=== PATIENT | female | born 1975 | race Caucasian/White ===

== ENCOUNTER → 2017-06-26 | Outpatient (CLI) | payer OTHER ==
[~2017-06-26] MED LIST: SULF-154 PO; Z.0.NO CURRENT MEDS; ZOVI200C24 PO
[2017-06-26 13:44] LABS: BACTERIA, URINE RARE /hpf; BILIRUBIN, URINE NEG (NEG); BLOOD, URINE SMALL (NEG); GLUCOSE,URINE NEG (NEG); KETONE, URINE TRACE mg/dL (NEG); NITRITE,URINE NEG (NEG); SQUAMOUS EPITHELIAL CELL URINE 2 /hpf (0-5); URINE COLOR LIGHT-YELLOW (YELLW/STRAW); URINE LEUKOCYTE ESTERASE TRACE (NEG)
[2017-06-26 14:01] LABS: HEMOGLOBIN 11.9 GM/DL (11.6-15.3); MEAN CELL VOLUME 87.9 FL (80.0-100.0); MEAN PLATELET VOLUME 8.5 FL (7.0-11.0); PLATELET COUNT 219 TH/MM3 (150-450); RED CELL DISTRIBUTION WIDTH 14.5 % (11.6-17.2); WHITE BLOOD COUNT 5.6 TH/MM3 (4.0-11.0)
--- NOTE | 2017-06-27 15:43 | EKG ---
Date Performed: 06/26/2017 Time Performed: 13:06:25 PTAGE: 41 years EKG: Sinus rhythm Consider anterior ischemia Consider anteroseptal myocardial infarction - age indeterminate NO PREVIOUS TRACING DOCTOR: Manjinder Alvarez Interpretating Date/Time 06/27/2017 15:42:01
== END ==
LOC: CPRE 12:49
PROVIDERS: ATTEND Obstetrics & Gynecology
DX: Z01.812 Encounter for preprocedural laboratory examination (principal); Z01.810 Encounter for preprocedural cardiovascular examination; N92.0 Excessive and frequent menstruation with regular cycle; N94.6 Dysmenorrhea, unspecified
CPT/HCPCS: 36415; 81001; 84702; 85027; 93005

== ENCOUNTER 2017-06-28 10:35 | Observation (INO) | payer OTHER ==
--- NOTE | 2017-06-27 13:53 | MH ---
cc: Trevor Seymour MD DATE OF ADMISSION: 06/28/2017 ADMITTING DIAGNOSES: Menorrhagia with dysmenorrhea. HISTORY OF PRESENT ILLNESS: The patient is a 41-year-old white female, para 0-1-1-1 with a 2-year history of excessive menstrual flow, menstrual cramps, and both symptoms have gotten worse over the last 6 months. Her laboratory studies were pertinent for anemia with normal thyroid, FSH. Her Pap smear was normal. Her pelvic ultrasound from 05/11/2017, was normal. Endometrial biopsy from 06/02/2017, was benign. After discussion of the relevant and different treatment options, the patient wished to proceed with a hysterectomy, now admitted for same. PAST SURGICAL HISTORY: in 2004. MEDICATIONS: Vitamins. ALLERGIES: NONE. TRANSFUSIONS: None. SOCIAL HISTORY: She works with hearing aids, 17 years. Alcohol: Occasional. Tobacco: None. Drugs: None. FAMILY HISTORY: Noncontributory. PHYSICAL EXAMINATION: GENERAL: She is a well-nourished, well-developed white female. VITAL SIGNS: Stable. CHEST: Clear. Heart RR. Breasts are symmetrical. ABDOMEN: Benign. PELVIC: Normal external genitalia and BUS. Vagina is normal. Cervix normal. Uterus feels about 10-12 week size. Adnexa nonpalpable. ASSESSMENT: As above. She is now admitted for laparoscopy planned laparoscopic supracervical hysterectomy with bilateral salpingectomy, possible total abdominal hysterectomy, possible bilateral salpingo-oophorectomy. While in the office, I explained the procedures, the risks, benefits and complications including infection, injury, bleeding. Patient elected to proceed. Of note, she is a [employer] and will not accept blood transfusions, even if it meant that she would pass away from the loss of blood. She understands that risk is low, but cannot be entirely eliminated and wished to proceed. MD LEIF Barr/MERCED , 01:34 PM , 01:53 PM [facility]ITALDanielle
[~2017-06-28] VITALS: Ht 170.2 cm; Wt 65.0 kg
[2017-06-28] MEDS ORDERED: ACETAMINOPHEN 1000 MG/100 ML 100 ML IV ONE ×2 (10:37→11:15)
[2017-06-28] MEDS ORDERED: HYDROmorphone HCL PF 2 MG/ML VIAL ONE (10:38)
[2017-06-28] MEDS ORDERED: BUPIVACAINE LIPOSOME PF 1.3% 20 ML VIAL ONE (11:04)
[2017-06-28] MEDS ORDERED: SODIUM CHLORID 0.9% 500 ML IV PRN (11:15)
[2017-06-28] MEDS ORDERED: POVIDONE IODINE 5% (ANTISEPSIS KIT) 4 APPLICATIONS EACH NARE PRN (11:15)
[2017-06-28] MEDS ORDERED: INSULIN HUMAN REGULAR 1,000 UNITS/10 ML VIAL SQ PRN (11:15)
[2017-06-28] MEDS ORDERED: CHLORHEXIDINE GLUCONATE 2 % 1 PACK (2 CLOTHS) TOPICAL PRN (11:15)
[2017-06-28] MEDS ORDERED: ceFAZolin 1,000 MG/NS 100 ML IV SCH ×2 (11:15)
[2017-06-28] MEDS ORDERED: METOPROLOL TARTRATE 25 MG TAB PO PRN (11:15)
[2017-06-28] MEDS ORDERED: LACTATED RINGER'S 1000 ML IV PRN (11:15)
[2017-06-28] MEDS ORDERED: ePHEDrine/NS 25 MG/5 ML SYRINGE IV ONE (12:00)
[2017-06-28] MEDS ORDERED: GLYCOPYRROLATE 1 MG/5 ML SYRINGE IV PUSH ONE (12:00)
[2017-06-28] MEDS ORDERED: ROCURONIUM INJ 50 MG/5 ML SYRINGE IV PUSH ONE (12:00)
[2017-06-28] MEDS ORDERED: PROPOFOL 200 MG/20 ML AMP IV ONE (12:00)
[2017-06-28] MEDS ORDERED: LIDOCAINE HCL 1% PF 5 ML SYRINGE OTHER ONE (12:00)
[2017-06-28] MEDS ORDERED: ONDANSETRON HCL 4 MG/2 ML VIAL IV ONE (12:00)
[2017-06-28] MEDS ORDERED: NEOSTIGMINE 5 MG/5 ML SYRINGE IV PUSH ONE (12:00)
[2017-06-28] MEDS ORDERED: DEXAMETHASONE SOD PHOS 4 MG/ML VIAL IV ONE (12:00)
[2017-06-28] MEDS ORDERED: LACTATED RINGER'S 1000 ML INJ 2,000 ML IV ONE (12:00)
[2017-06-28] MEDS ORDERED: KETOROLAC TROMETHAMINE 30 MG/ML (IVP) VIAL IV PUSH ONE (12:00)
[2017-06-28] MEDS ORDERED: ONDANSETRON HCL 4 MG/2 ML VIAL IV PUSH PRN (14:30)
[2017-06-28] MEDS ORDERED: ZOLPIDEM TARTRATE 5 MG TAB PO PRN (14:30)
[2017-06-28] MEDS: ACETAMINOPHEN 1000 MG/100 ML VIAL IV SCH ×2 (14:30→23:16)
[2017-06-28] MEDS ORDERED: diphenhydrAMINE HCL 25 MG CAP PO PRN (14:30)
[2017-06-28] MEDS ORDERED: PROMETHAZINE INJ 25 MG/ML VIAL IM PRN (14:30)
[2017-06-28] MEDS: DOCUSATE SODIUM 100 MG CAP PO SCH ×2 (14:30→21:00)
[2017-06-28] MEDS: KETOROLAC TROMETHAMINE 30 MG/ML (IVP) VIAL IVP SCH ×2 (14:30→20:16)
[2017-06-28] MEDS ORDERED: HYDROmorphone HCL PF 2 MG/ML VIAL IV PUSH PRN (14:45)
[2017-06-28] MEDS ORDERED: DO NOT ADM ANY ANTICOAGULANT DRUGS PRN (14:47)
[2017-06-28] MEDS ORDERED: MIDAZOLAM HCL 2 MG/2 ML VIAL ONE (14:55)
[2017-06-28] MEDS ORDERED: ONDANSETRON INJ 8 MG in DEXTROSE 5% IN WATER INJ 50 ML IV PRN ×2 (15:00)
[2017-06-28] MEDS ORDERED: *MEPERIDINE 25 MG INJ VIAL PERIprocedural Use ONLY ONE (15:07)
--- NOTE | 2017-06-28 15:08 | MP ---
cc: Trevor Seymour MD DATE OF OPERATION: 06/28/2017 PREOPERATIVE DIAGNOSES: Menorrhagia, dysmenorrhea. POSTOPERATIVE DIAGNOSES: Menorrhagia, dysmenorrhea, probably due to adenomyosis. PROCEDURE PERFORMED: LASH with a bilateral salpingectomy. ANESTHESIA: General, ET. SURGEON: Trevor Seymour MD [employer] MEMBER: TRACY Ling ESTIMATED BLOOD LOSS: About 100 mL FLUIDS: 2 liters crystalloid. OBJECTIVE FINDINGS: Following induction of adequate general endotracheal anesthesia, the patient received TAP block. She was then prepped and draped in dorsal lithotomy position in sterile fashion with the bladder being drained with Bedolla catheterization. In the abdomen, I did a 3 cm curving infraumbilical incision using a knife, cut down through the skin to the fascia. Fascia opened transversely, stripped from the muscles, rectus muscle split in the midline and the peritoneum opened sharply without incident. The mini GelPort was placed. The laparoscope was inserted. A 5 port placed in left lower quadrant, an AirSeal in the right lower quadrant. Uterus was about 12-week size, globular. Normal tubes, normal ovaries, normal cul-de-sac, normal liver edge, normal appendix. Working first on the left, my scalpel was used to take the left mesosalpinx, left round ligament, left broad ligament, left side bladder flap and the left uterine vessels, and same on the right. My scalpel was now used to amputate the fundus from the cervix and it was extracted, the fundus and tubes, in a pouch through the GelPort site intact. Irrigation now performed. One area of bleeding on the left side was treated with the Harmonic scalpel to good effect. Blood pressure tests were done. There was no bleeding in the Trendelenburg, neutral position. The cervical wound site was then packed with SNoW hemostatic agent and the operative site all coated with Evicel. The scope was now removed, the GelPort removed and the peritoneum was sutured with a 2-0 Vicryl running stitch, the fascia with a running locking stitch of 0 Vicryl, corners to midline, tied, the subcutaneous with running 3-0 Vicryl and skin with running 3-0 Monocryl subcuticular. The scope was now reinserted. The operative site irrigated. No bleeding was evident and for final measure, they were dusted with Naun and observed to have no bleeding. The scope was now removed. Small ports were removed and sutured with 3-0 Monocryl. Dermabond applied. All counts were correct and the patient was awakened and taken to the recovery room in good condition. MD LEIF Barr/MERCED , 02:32 PM , 03:06 PM
[2017-06-28] MEDS ORDERED: *morphine SULFATE 4 MG/ML PERIprocedure ONLY ONE (15:22)
[2017-06-28] MEDS: D5-1/2 NS + KCL 20 MEQ INJ 1,000 ML IV SCH ×2 (15:30→23:16)
[2017-06-28 15:50] VITALS: BP 110/73; PULSE 68; RESP 18; TEMP 97.7; O2SAT 100
[2017-06-28 18:51] LABS: HEMATOCRIT 34.5 % (35.0-46.0); HEMOGLOBIN 11.3 GM/DL (11.6-15.3)
[2017-06-28 19:58] VITALS: BP 125/79; PULSE 78; RESP 18; TEMP 98.1
[2017-06-29 00:07] VITALS: BP 117/75; PULSE 57; RESP 17; TEMP 98.2
[2017-06-29] MEDS: KETOROLAC TROMETHAMINE 30 MG/ML (IVP) VIAL IVP SCH ×2 (02:50→08:59)
[2017-06-29 03:28] VITALS: BP 110/67; PULSE 68; RESP 18; TEMP 98.2
[2017-06-29 05:54] LABS: AUTOMATED NEUTROPHIL # 5.8 TH/MM3 (1.8-7.7); BASOPHIL % 0.2 % (0.0-2.0); EOSINOPHIL % 0.1 % (0.0-4.0); HEMATOCRIT 30.6 % (35.0-46.0); HEMOGLOBIN 10.3 GM/DL (11.6-15.3); LYMPH % 18.1 % (9.0-44.0); LYMPHOCYTE # 1.5 TH/MM3 (1.0-4.8); MEAN CELL VOLUME 87.7 FL (80.0-100.0); MEAN CORPUSCULAR HEMOGLOBIN 29.4 PG (27.0-34.0); MEAN CORPUSCULAR HGB CONC 33.6 % (32.0-36.0); MEAN PLATELET VOLUME 8.4 FL (7.0-11.0); MONOCYTE # 0.7 TH/MM3 (0-0.9); NEUT % 72.6 % (16.0-70.0); PLATELET COUNT 174 TH/MM3 (150-450); RED BLOOD COUNT 3.49 MIL/MM3 (4.00-5.30); RED CELL DISTRIBUTION WIDTH 14.1 % (11.6-17.2)
[2017-06-29 06:18] LABS: BICARBONATE 24.5 MEQ/L (21.0-32.0); CALCIUM 7.2 MG/DL (8.5-10.1); CREATININE 0.85 MG/DL (0.50-1.00)
[2017-06-29] MEDS: ACETAMINOPHEN 1000 MG/100 ML VIAL IV SCH (06:22)
[2017-06-29] MEDS: D5-1/2 NS + KCL 20 MEQ INJ 1,000 ML IV SCH (06:23)
[2017-06-29 06:44] LABS: CALCIUM-PROTEIN CORRECTED 7.9 MG/DL (8.5-10.1); TOTAL PROTEIN 5.8 GM/DL (6.4-8.2)
[2017-06-29 08:00] VITALS: BP 109/67; PULSE 65; RESP 18; TEMP 98.1; O2SAT 99
[2017-06-29] MEDS: DOCUSATE SODIUM 100 MG CAP PO SCH (08:59)
[2017-06-29 11:53] VITALS: BP 113/77; PULSE 70; RESP 18; TEMP 98.2; O2SAT 100
== END 2017-06-29 12:47 | disposition home or self-care (01) ==
LOC: HSDC 10:35 → HSDI 14:27 → H1EA 15:47
PROVIDERS: ADMIT Obstetrics & Gynecology; ATTEND Obstetrics & Gynecology
DX: N92.0 Excessive and frequent menstruation with regular cycle (principal); N94.6 Dysmenorrhea, unspecified
CPT/HCPCS: 00840; 58542; 80048; 84155; 85014; 85018; 85025; 88307; 96365; 96366; 96368; 96375; 96376; C9290; G0378; J0131; J0690; J1100; J1170; J1885; J2175; J2250; J2270; J2405; J2710; J3010; J3480; J7120